=== PATIENT | female | born 1960 | race Hispanic/Latino ===

== ENCOUNTER 2020-10-31 15:43 | Outpatient (CLI) | payer BC ==
--- NOTE | 2020-10-31 16:21 | RAD ---
EXAM: Chest 2 views: HISTORY: Preoperative radiograph COMPARISON: 11/23/2016 FINDINGS: There is a normal-sized cardiomediastinal silhouette. There is no evidence of consolidation, mass, or pleural effusion. No acute osseous abnormality. IMPRESSION: No evidence of acute cardiopulmonary disease
== END 2020-10-31 15:44 | disposition home or self-care (01) ==
LOC: BICRAD 15:43
PROVIDERS: ATTEND Internal Medicine Nephrology
DX: Z01.818 Encounter for other preprocedural examination (principal)
CPT/HCPCS: 71046

== ENCOUNTER 2021-03-24 11:21 | Inpatient (IN) | payer BC ==
[2021-03-24 12:09] LABS: #Lymphocytes 0.9 thou/uL (1.20-3.40); #Monocytes 0.5 thou/uL (0.11-0.59); %Basophils 0.3 % (0.0-1.0); %Eosinophils 0.2 % (0.0-10.0); %Lymphocytes 9.3 % (21.0-51.0); %Monocytes 5.1 % (0.0-10.0); %Neutrophils 85.1 % (42.0-75.0); Hemoglobin 12.2 g/dL (12.0-16.0); Mean Corpuscular HGB CONC 32.8 g/dL (32.0-36.0); Mean Corpuscular Hemoglobin 29.7 pg (27.0-31.0); Mean Corpuscular Volume 90.5 fL (78.0-98.0); Mean Platelet Volume 8.4 fL (7.4-10.4); Platelet Count 200 thou/uL (130-400); RBC Distribution Width 12.9 % (11.5-14.5); White Blood Cell (WBC) Count 9.4 thou/uL (4.8-10.8)
[2021-03-24 12:20] LABS: Bilirubin Negative (Negative); Blood, Urine 1+ (Negative); Clarity Clear (Clear); Glucose, Urine (Dipstick) Normal (Negative); Ketone, Urine Negative (Negative); Leukocyte Negative Leu/uL (Negative); Nitrite Negative (Negative); Protein, Urine (Dipstick) 100 mg/dL (Neg-Trace); Specific Gravity, Urine 1.014 (1.002-1.036); Squamous Epithelial 0-3 HPF (0-3); Urobilinogen Normal mg/dL (Less than 2); WBC/HPF 0-3 HPF (0-3)
[2021-03-24 12:22] LABS: Bacteria/HPF 1+ HPF (None Seen)
[2021-03-24 12:23] LABS: ALT (SGPT) 12 U/L (8-55); AST (SGOT) 13 U/L (5-34); Alkaline Phosphatase 77 U/L (40-110); Anion Gap 15 mmol/L (10-20); BUN (Urea Nitrogen) 23 mg/dL (9.8-20.1); Bilirubin, Total 0.3 mg/dL (0.2-1.2); CK (CPK) 102 U/L (29-168); Calc. Creatinine Clearance 0 mL/min (70-130); Calcium 9.3 mg/dL (7.8-10.44); Carbon Dioxide 21 mmol/L (23-31); Chloride 110 mmol/L (98-107); Globulin 3.5 g/dL (2.4-3.5); Glucose 123 mg/dL (80-115); PTT 27.7 sec (22.9-36.1); Protein, Total 7.5 g/dL (5.8-8.1); Prothrombin Time 12.8 sec (12.0-14.7); Sodium 142 mmol/L (136-145)
[2021-03-24] MEDS ORDERED: cloNIDine 0.1 MG TAB PO PRN (13:35)
[2021-03-24] MEDS ORDERED: Lidocaine 1% w/Epinephrine 1:100K 20 ML VIAL ONE (13:37)
[2021-03-24] MEDS ORDERED: cloNIDine 0.1 MG TAB ONE (14:27)
[2021-03-24] MEDS ORDERED: Aspirin 325 MG TAB ONE (14:28)
[2021-03-24 14:30] LABS: CK (CPK) 103 U/L (29-168); Magnesium 1.9 mg/dL (1.6-2.6); Phosphorus 2.9 mg/dL (2.3-4.7)
[2021-03-24] MEDS ORDERED: Bisacodyl 10 MG SUPP PR PRN (14:39)
[2021-03-24] MEDS ORDERED: Senokot S 8.6-50 MG TAB PO PRN (14:39)
[2021-03-24] MEDS ORDERED: Ondansetron PF 4 MG/2 ML Vial IVP PRN (14:39)
[2021-03-24] MEDS ORDERED: Calcium Carbonate 500 MG ChewTAB PO PRN (14:39)
[2021-03-24] MEDS ORDERED: Ondansetron ODT 4 MG TAB PO PRN (14:39)
[2021-03-24] MEDS ORDERED: Sodium Chloride 0.9% 1,000 ML IV SCH (14:45)
[2021-03-24] MEDS ORDERED: Meropenem 2 GM in Sodium Chloride 0.9% 100 ML IVPB SCH (15:00)
[2021-03-24] MEDS ORDERED: hydrALAZINE 20 MG/ML VIAL SLOW IVP PRN (15:12)
[2021-03-24] MEDS ORDERED: cloNIDine 0.1mg/24 Hour PATCH TD SCH (15:15)
[2021-03-24] MEDS ORDERED: hydrALAZINE 20 MG/ML VIAL ONE (15:52)
[2021-03-24] MEDS ORDERED: Aspirin 300 MG Suppository ONE (15:52)
[2021-03-24] MEDS: Dextrose 5 %-0.45 % NaCl 1,000 ML IV SCH (19:16)
[2021-03-24] MEDS ORDERED: methylPREDNISolone Sod Succ 40 MG VIAL IVP SCH (19:30)
[2021-03-24 19:31] VITALS: BMI 33.6
[2021-03-24] MEDS: Doxazosin Mesylate 4 MG TAB PO SCH (20:40)
[2021-03-24] MEDS: cycloSPORINE, Modified 25 MG CAP PO SCH (20:40)
[2021-03-24] MEDS: cloNIDine 0.1 MG TAB PO SCH (20:42)
[2021-03-24] MEDS ORDERED: Mycophenolate ER 180 MG TAB PO SCH ×2 (21:00)
[2021-03-24] MEDS ORDERED: Nitroglycerin 2% Ointment 1 INCH/1 GM Packet TOP SCH (22:00)
[2021-03-24] MEDS: Nitroglycerin 2% Ointment 1 INCH/1 GM Packet TOP SCH (22:07)
[2021-03-25 04:51] LABS: #Monocytes 0.1 thou/uL (0.11-0.59); #Neutrophils 5.9 thou/uL (1.40-6.50); %Basophils 0.2 % (0.0-1.0); %Eosinophils 0.4 % (0.0-10.0); %Lymphocytes 14.5 % (21.0-51.0); %Monocytes 1.9 % (0.0-10.0); %Neutrophils 83.1 % (42.0-75.0); Hemoglobin 11.5 g/dL (12.0-16.0); Mean Corpuscular HGB CONC 32.8 g/dL (32.0-36.0); Mean Corpuscular Hemoglobin 29.6 pg (27.0-31.0); Mean Corpuscular Volume 90.2 fL (78.0-98.0); Mean Platelet Volume 8.9 fL (7.4-10.4); Platelet Count 208 thou/uL (130-400); RBC Distribution Width 12.8 % (11.5-14.5); Red Blood Cell (RBC) Count 3.89 mill/uL (4.20-5.40); White Blood Cell (WBC) Count 7.1 thou/uL (4.8-10.8)
[2021-03-25 05:10] LABS: Albumin 3.6 g/dL (3.4-4.8); Anion Gap 14 mmol/L (10-20); BUN (Urea Nitrogen) 21 mg/dL (9.8-20.1); BUN/Creatinine Ratio 20.19; Calc. Creatinine Clearance 67 mL/min (70-130); Calcium 8.7 mg/dL (7.8-10.44); Carbon Dioxide 18 mmol/L (23-31); Chloride 112 mmol/L (98-107); Glucose 151 mg/dL (80-115); Phosphorus 3.1 mg/dL (2.3-4.7); Potassium 4.1 mmol/L (3.5-5.1); Sodium 140 mmol/L (136-145)
[2021-03-25] MEDS: Nitroglycerin 2% Ointment 1 INCH/1 GM Packet TOP SCH (05:39)
[2021-03-25] MEDS ORDERED: cloNIDine 0.1 MG TAB PO SCH (09:00)
[2021-03-25] MEDS ORDERED: Enoxaparin Sodium 40 MG/0.4 ML SYRINGE SC SCH (09:00)
[2021-03-25] MEDS: predniSONE 5 MG TAB PO SCH (09:10)
[2021-03-25] MEDS: cloNIDine 0.1 MG TAB PO SCH ×2 (09:11→21:31)
[2021-03-25] MEDS: Aspirin 81 mg Enteric Coated Tablet PO SCH (09:11)
[2021-03-25] MEDS: Mycophenolate ER 180 MG TAB PO SCH (09:12)
[2021-03-25] MEDS: cycloSPORINE, Modified 25 MG CAP PO SCH (09:13)
[2021-03-25] MEDS: Labetalol HCl 100 MG/20 ML VIAL SLOW IVP PRN ×2 (12:06→16:29)
[2021-03-25] MEDS: Acetaminophen 325 MG TAB PO PRN ×2 (12:08→16:32)
[2021-03-25] MEDS: Dextrose 5 %-0.45 % NaCl 1,000 ML IV SCH (12:13)
[2021-03-25 13:03] LABS: SARS-CoV-2 PCR by NAA Not Detected (NotDetected)
[2021-03-25] MEDS ORDERED: Lisinopril 20 MG TAB PO SCH (17:45)
[2021-03-25] MEDS: Doxazosin Mesylate 4 MG TAB PO SCH (21:31)
[2021-03-26] MEDS: cycloSPORINE, Modified 25 MG CAP PO SCH ×3 (01:22→21:25)
[2021-03-26] MEDS: Mycophenolate ER 180 MG TAB PO SCH ×3 (01:23→21:26)
[2021-03-26] MEDS: Acetaminophen 325 MG TAB PO PRN (02:50)
[2021-03-26 05:23] LABS: #Eosinphils 0.1 thou/uL (0.0-0.7); #Lymphocytes 1.5 thou/uL (1.20-3.40); #Monocytes 0.5 thou/uL (0.11-0.59); %Basophils 0.7 % (0.0-1.0); %Eosinophils 1.2 % (0.0-10.0); %Lymphocytes 24.9 % (21.0-51.0); %Monocytes 7.6 % (0.0-10.0); %Neutrophils 65.5 % (42.0-75.0); Hemoglobin 11.4 g/dL (12.0-16.0); Mean Corpuscular HGB CONC 32.7 g/dL (32.0-36.0); Mean Corpuscular Volume 91.7 fL (78.0-98.0); Mean Platelet Volume 8.8 fL (7.4-10.4); Platelet Count 195 thou/uL (130-400); RBC Distribution Width 12.8 % (11.5-14.5); Red Blood Cell (RBC) Count 3.79 mill/uL (4.20-5.40); White Blood Cell (WBC) Count 6.2 thou/uL (4.8-10.8)
[2021-03-26 05:47] LABS: Anion Gap 12 mmol/L (10-20); BUN (Urea Nitrogen) 22 mg/dL (9.8-20.1); Calc. Creatinine Clearance 64 mL/min (70-130); Calcium 8.7 mg/dL (7.8-10.44); Carbon Dioxide 20 mmol/L (23-31); Chloride 112 mmol/L (98-107); Glucose 108 mg/dL (80-115); Potassium 4.3 mmol/L (3.5-5.1); Sodium 140 mmol/L (136-145)
[2021-03-26] MEDS: Lisinopril 20 MG TAB PO SCH (08:22)
[2021-03-26] MEDS: cloNIDine 0.1 MG TAB PO SCH ×2 (08:22→21:25)
[2021-03-26] MEDS: predniSONE 5 MG TAB PO SCH (08:23)
[2021-03-26] MEDS ORDERED: Sodium Bicarbonate 100 MEQ in Sodium Chloride 0.45% 1,000 ML IV SCH (10:15)
[2021-03-26] MEDS ORDERED: Sodium Bicarbonate 50 MEQ in Dextrose 5 %-0.45 % NaCl 1,000 ML IV SCH (15:00)
[2021-03-26] MEDS ORDERED: Levothyroxine Sodium 50 MCG TAB PO SCH (15:00)
[2021-03-26] MEDS ORDERED: Gabapentin 100 MG CAP PO PRN (16:33)
[2021-03-26] MEDS: Aspirin 81 mg Enteric Coated Tablet PO SCH (17:19)
[2021-03-26] MEDS ORDERED: hydrALAZINE 25 MG TAB PO PRN (18:27)
[2021-03-26] MEDS ORDERED: hydrALAZINE 20 MG/ML VIAL SLOW IVP PRN (18:28)
[2021-03-26] MEDS: Doxazosin Mesylate 4 MG TAB PO SCH (21:25)
[2021-03-27] MEDS: Acetaminophen 325 MG TAB PO PRN (00:12)
[2021-03-27 06:20] LABS: #Eosinphils 0.1 thou/uL (0.0-0.7); #Lymphocytes 1.6 thou/uL (1.20-3.40); #Monocytes 0.5 thou/uL (0.11-0.59); #Neutrophils 4.5 thou/uL (1.40-6.50); %Basophils 0.6 % (0.0-1.0); %Eosinophils 1.2 % (0.0-10.0); %Lymphocytes 24.1 % (21.0-51.0); %Monocytes 6.9 % (0.0-10.0); %Neutrophils 67.2 % (42.0-75.0); Anion Gap 11 mmol/L (10-20); BUN (Urea Nitrogen) 21 mg/dL (9.8-20.1); Calc. Creatinine Clearance 70 mL/min (70-130); Calcium 8.7 mg/dL (7.8-10.44); Carbon Dioxide 22 mmol/L (23-31); Chloride 108 mmol/L (98-107); Glucose 118 mg/dL (80-115); Hemoglobin 11.9 g/dL (12.0-16.0); Mean Corpuscular HGB CONC 32.1 g/dL (32.0-36.0); Mean Corpuscular Hemoglobin 29.1 pg (27.0-31.0); Mean Corpuscular Volume 90.8 fL (78.0-98.0); Mean Platelet Volume 8.5 fL (7.4-10.4); Platelet Count 195 thou/uL (130-400); Potassium 3.9 mmol/L (3.5-5.1); RBC Distribution Width 12.6 % (11.5-14.5); Red Blood Cell (RBC) Count 4.07 mill/uL (4.20-5.40); Sodium 137 mmol/L (136-145); White Blood Cell (WBC) Count 6.7 thou/uL (4.8-10.8)
[2021-03-27] MEDS ORDERED: Cyanocobalamin 1000 MCG/ML VIAL IM SCH (06:45)
[2021-03-27] MEDS: Levothyroxine Sodium 50 MCG TAB PO SCH (07:01)
[2021-03-27] MEDS: Lisinopril 20 MG TAB PO SCH (10:41)
[2021-03-27] MEDS: predniSONE 5 MG TAB PO SCH (10:42)
[2021-03-27] MEDS: cloNIDine 0.1 MG TAB PO SCH ×2 (10:43→20:38)
[2021-03-27] MEDS: Multivit, Therapeutic 1 TAB PO SCH (10:43)
[2021-03-27] MEDS: cycloSPORINE, Modified 25 MG CAP PO SCH ×2 (10:51→20:40)
[2021-03-27] MEDS: Mycophenolate ER 180 MG TAB PO SCH ×2 (10:52→20:40)
[2021-03-27] MEDS ORDERED: Sodium Chloride 0.65% Nasal 44 ML BOT EA NARE PRN (12:08)
[2021-03-27] MEDS: Fluticasone Propionate Nasal Spray 16 gm Bottle NASAL SCH (14:50)
[2021-03-27] MEDS: Aspirin 81 mg Enteric Coated Tablet PO SCH (14:50)
[2021-03-27] MEDS: Labetalol HCl 100 MG/20 ML VIAL SLOW IVP PRN (18:04)
[2021-03-27] MEDS ORDERED: Polyethylene Glycol 3350 17 GM Packet PO PRN (19:25)
[2021-03-27] MEDS: Cyanocobalamin (Vitamin B-12) 1,000 MCG TAB PO SCH (20:38)
[2021-03-27] MEDS: Enoxaparin Sodium 30 MG/0.3 ML SYRINGE SC SCH (20:38)
[2021-03-27] MEDS: Doxazosin Mesylate 4 MG TAB PO SCH (20:38)
[2021-03-28 05:37] LABS: #Eosinphils 0.1 thou/uL (0.0-0.7); #Lymphocytes 1.3 thou/uL (1.20-3.40); #Monocytes 0.6 thou/uL (0.11-0.59); #Neutrophils 5.1 thou/uL (1.40-6.50); %Basophils 0.3 % (0.0-1.0); %Eosinophils 1.4 % (0.0-10.0); %Lymphocytes 18.6 % (21.0-51.0); %Monocytes 7.9 % (0.0-10.0); %Neutrophils 71.8 % (42.0-75.0); Hemoglobin 11.6 g/dL (12.0-16.0); Mean Corpuscular HGB CONC 32.8 g/dL (32.0-36.0); Mean Corpuscular Hemoglobin 29.8 pg (27.0-31.0); Mean Corpuscular Volume 90.8 fL (78.0-98.0); Mean Platelet Volume 8.5 fL (7.4-10.4); Platelet Count 178 thou/uL (130-400); RBC Distribution Width 12.5 % (11.5-14.5); Red Blood Cell (RBC) Count 3.91 mill/uL (4.20-5.40); White Blood Cell (WBC) Count 7.1 thou/uL (4.8-10.8)
[2021-03-28] MEDS: Levothyroxine Sodium 50 MCG TAB PO SCH (06:00)
[2021-03-28 06:01] LABS: Anion Gap 14 mmol/L (10-20); BUN (Urea Nitrogen) 27 mg/dL (9.8-20.1); Calc. Creatinine Clearance 66 mL/min (70-130); Calcium 8.5 mg/dL (7.8-10.44); Carbon Dioxide 21 mmol/L (23-31); Chloride 108 mmol/L (98-107); Glucose 108 mg/dL (80-115); Sodium 139 mmol/L (136-145)
[2021-03-28] MEDS: cycloSPORINE, Modified 25 MG CAP PO SCH (09:26)
[2021-03-28] MEDS: Mycophenolate ER 180 MG TAB PO SCH ×6 (09:26→17:31)
[2021-03-28] MEDS: Multivit, Therapeutic 1 TAB PO SCH (09:26)
[2021-03-28] MEDS: predniSONE 5 MG TAB PO SCH (09:26)
[2021-03-28] MEDS: cloNIDine 0.1 MG TAB PO SCH (09:27)
[2021-03-28] MEDS: Lisinopril 20 MG TAB PO SCH (09:27)
[2021-03-28] MEDS: Fluticasone Propionate Nasal Spray 16 gm Bottle NASAL SCH (17:19)
[2021-03-28] MEDS: Cyanocobalamin (Vitamin B-12) 1,000 MCG TAB PO SCH (20:24)
[2021-03-28] MEDS: Enoxaparin Sodium 30 MG/0.3 ML SYRINGE SC SCH (20:24)
[2021-03-28] MEDS: Doxazosin Mesylate 4 MG TAB PO SCH (20:24)
[2021-03-28] MEDS ORDERED: cycloSPORINE, Modified 25 MG CAP PO SCH (21:00)
[2021-03-29] MEDS: cloNIDine 0.1 MG TAB PO SCH ×2 (00:17→08:59)
[2021-03-29] MEDS: Levothyroxine Sodium 50 MCG TAB PO SCH (06:06)
[2021-03-29] MEDS: predniSONE 5 MG TAB PO SCH (08:59)
[2021-03-29] MEDS: Lisinopril 20 MG TAB PO SCH (09:00)
[2021-03-29] MEDS: Multivit, Therapeutic 1 TAB PO SCH (10:34)
[2021-03-29] MEDS: Acetaminophen 325 MG TAB PO PRN (10:45)
[2021-03-29 15:47] VITALS: BP 136/68; TEMP 98.2
[2021-03-29] MEDS: Fluticasone Propionate Nasal Spray 16 gm Bottle NASAL SCH (16:40)
[2021-03-31] MEDS ORDERED: cloNIDine 0.1mg/24 Hour PATCH TD SCH (09:00)
== END 2021-03-29 19:29 | disposition home health service (06) | DRG 92 ==
LOC: ERS 11:21 → 2SE 13:31 → OBSVTOIN 13:31
PROVIDERS: ADMIT Internal Medicine; ATTEND Internal Medicine
PROC: 0HQ1XZZ Repair Face Skin, External Approach (ICD-10-PCS; principal; 2021-03-24)
DX: G92 Toxic encephalopathy (principal); Z94.0 Kidney transplant status; D84.821 Immunodeficiency due to drugs; E87.2 Acidosis; Z20.822 Contact with and (suspected) exposure to COVID-19; T42.8X5A Adverse effect of antiparkinsonism drugs and other central muscle-tone depressants, initial encounter; I12.9 Hypertensive chronic kidney disease with stage 1 through stage 4 chronic kidney disease, or unspecified chronic kidney disease; E78.5 Hyperlipidemia, unspecified; N18.9 Chronic kidney disease, unspecified; S01.111A Laceration without foreign body of right eyelid and periocular area, initial encounter; I16.0 Hypertensive urgency; N18.30 Chronic kidney disease, stage 3 unspecified; E03.9 Hypothyroidism, unspecified; K80.20 Calculus of gallbladder without cholecystitis without obstruction; K57.90 Diverticulosis of intestine, part unspecified, without perforation or abscess without bleeding; E66.9 Obesity, unspecified; D63.1 Anemia in chronic kidney disease; E53.8 Deficiency of other specified B group vitamins; S00.03XA Contusion of scalp, initial encounter; W19.XXXA Unspecified fall, initial encounter; R29.6 Repeated falls; G93.89 Other specified disorders of brain; M54.9 Dorsalgia, unspecified; G89.29 Other chronic pain; E04.1 Nontoxic single thyroid nodule; K21.9 Gastro-esophageal reflux disease without esophagitis; M10.9 Gout, unspecified; Z68.23 Body mass index [BMI] 23.0-23.9, adult; Z90.710 Acquired absence of both cervix and uterus; Z79.899 Other long term (current) drug therapy; Z79.52 Long term (current) use of systemic steroids
CPT/HCPCS: 12013; 36415; 51701; 70450; 70551; 71045; 72072; 72100; 72125; 72141; 72148; 74176; 80048; 80053; 80069; 80158; 81003; 81015; 82533; 82550; 82607; 82746; 83605; 83735; 84100; 84146; 84484; 85025; 85610; 85730; 86140; 87040; 87086; 93005; 95712; 95819; 95957; 96365; 96375; J0360; J1650; J2185; J2405; J2920; J3420; J3490; J7042; J7512; J7515; J7518; U0003; U0005

== ENCOUNTER 2021-09-03 14:21 | Outpatient (CLI) | payer BC | END 2021-09-03 14:22 | disposition home or self-care (01) | LOC: BICULT 14:21 | PROVIDERS: ATTEND Otolaryngology Plastic Surgery within the Head & Neck | DX: E04.1 Nontoxic single thyroid nodule (principal) | CPT/HCPCS: 76536 ==

== ENCOUNTER 2022-03-20 12:27 | Day surgery (SDC) | payer BC ==
[2022-01-29 10:02] VITALS: BMI 37.8
[2022-03-20] MEDS ORDERED: Sodium Bicarbonate 2.5 MEQ/5 ML VIAL ONE (12:48)
[2022-03-20] MEDS ORDERED: Lidocaine 1% PF 5 ML VIAL ONE (12:48)
[2022-03-20 13:28] VITALS: BP 165/74; TEMP 97.8
== END 2022-03-20 13:40 | disposition home or self-care (01) ==
LOC: ULT 12:27
PROVIDERS: ATTEND Otolaryngology Plastic Surgery within the Head & Neck
PROC: 0G9H3ZX Drainage of Right Thyroid Gland Lobe, Percutaneous Approach, Diagnostic (ICD-10-PCS; principal; 2022-03-20)
DX: E04.1 Nontoxic single thyroid nodule (principal); Z79.52 Long term (current) use of systemic steroids; Z79.890 Hormone replacement therapy; Z79.899 Other long term (current) drug therapy; Z88.8 Allergy status to other drugs, medicaments and biological substances
CPT/HCPCS: 10005; 88173; 88305

== ENCOUNTER 2022-04-18 14:04 | Outpatient (CLI) | payer BC | END 2022-04-18 14:05 | disposition home or self-care (01) | LOC: BICULT 14:04 | PROVIDERS: ATTEND Otolaryngology | DX: E04.1 Nontoxic single thyroid nodule (principal) | CPT/HCPCS: 76536 ==

== ENCOUNTER 2022-12-31 14:29 | Outpatient (CLI) | payer BC | END 2022-12-31 14:30 | disposition home or self-care (01) | LOC: BICRAD 14:29 | PROVIDERS: ATTEND Internal Medicine | DX: M25.562 Pain in left knee (principal); M79.672 Pain in left foot; M25.572 Pain in left ankle and joints of left foot; M79.662 Pain in left lower leg; M20.12 Hallux valgus (acquired), left foot; M20.5X2 Other deformities of toe(s) (acquired), left foot; M79.89 Other specified soft tissue disorders ==

== ENCOUNTER 2023-01-01 15:42 | Emergency (ER) | payer BC ==
[2023-01-01 16:11] LABS: #Lymphocytes 1.3 thou/uL (1.20-3.40); #Monocytes 0.6 thou/uL (0.11-0.59); #Neutrophils 5.8 thou/uL (1.40-6.50); %Basophils 0.1 % (0.0-1.0); %Eosinophils 0.6 % (0.0-10.0); %Lymphocytes 16.5 % (21.0-51.0); %Monocytes 7.4 % (0.0-10.0); %Neutrophils 75.4 % (42.0-75.0); Mean Corpuscular HGB CONC 33.3 g/dL (32.0-36.0); Mean Corpuscular Hemoglobin 30.6 pg (27.0-31.0); Mean Corpuscular Volume 91.8 fl (78.0-98.0); Mean Platelet Volume 8.8 fL (7.4-10.4); Platelet Count 195 10x3/uL (130-400); Red Blood Cell (RBC) Count 3.61 mill/uL (4.20-5.40); White Blood Cell (WBC) Count 7.7 10x3/uL (4.8-10.8)
[2023-01-01 16:38] LABS: ALT (SGPT) 7 U/L (8-55); AST (SGOT) 9 U/L (5-34); Albumin 3.7 g/dL (3.4-4.8); Alkaline Phosphatase 67 U/L (40-110); Anion Gap 12 mmol/L (10-20); BUN (Urea Nitrogen) 24 mg/dL (9.8-20.1); Bilirubin, Total 0.4 mg/dL (0.2-1.2); Calc. Creatinine Clearance 0 mL/min (70-130); Calcium 8.9 mg/dL (7.8-10.44); Carbon Dioxide 21 mmol/L (23-31); Chloride 108 mmol/L (98-107); Estimated GFR 44; Globulin 3.2 g/dL (2.4-3.5); Glucose 109 mg/dL (80-115); Potassium 4.8 mmol/L (3.5-5.1); Protein, Total 6.9 g/dL (5.8-8.1); Sodium 136 mmol/L (136-145)
== END 2023-01-01 17:23 | disposition home or self-care (01) ==
LOC: ERS 15:42
DX: S80.12XA Contusion of left lower leg, initial encounter (principal); I12.9 Hypertensive chronic kidney disease with stage 1 through stage 4 chronic kidney disease, or unspecified chronic kidney disease; N18.9 Chronic kidney disease, unspecified; E03.9 Hypothyroidism, unspecified; E78.5 Hyperlipidemia, unspecified; Z79.899 Other long term (current) drug therapy
CPT/HCPCS: 36415; 80053; 85025; 85379